=== PATIENT | female | born 2000 | race African-American/Black ===

== ENCOUNTER 2021-06-12 08:51 | Emergency (ER) | payer SELFPAY ==
[~2021-06-12] VITALS: Ht 170.2 cm; Wt 85.0 kg
[2021-06-12 10:30] LABS: *AMPHETAMINES SCREEN URINE NEGATIVE (NEGATIVE); *BARBITURATES SCREEN URINE NEGATIVE (NEGATIVE); *BENZODIAZEPINES SCREEN URINE NEGATIVE (NEGATIVE)
[2021-06-12 10:31] LABS: *COCAINE SCREEN URINE NEGATIVE (NEGATIVE); CANNABINOID URINE SCREEN NEGATIVE (NEGATIVE); METHADONE URINE SCREEN NEGATIVE (NEGATIVE); OPIATES URINE SCREEN NEGATIVE (NEGATIVE); PHENCYCLIDINE URINE SCREEN NEGATIVE (NEGATIVE)
[2021-06-12] MEDS ORDERED: LIDOCAINE HCL 1% 20ML VIAL (Pyxis) INJ INFIL ONE (11:00)
[2021-06-12] MEDS ORDERED: CEFTRIAXONE SODIUM 1 G/VIAL IM ONE (11:00)
[2021-06-12] MEDS ORDERED: DOXY100C2 MT (11:34)
[2021-06-12 12:06] VITALS: BP 128/70
== END 2021-06-12 12:06 | disposition home or self-care (01) ==
LOC: ER 08:51
DX: J18.9 Pneumonia, unspecified organism (principal); Z20.822 Contact with and (suspected) exposure to COVID-19
CPT/HCPCS: 71045; 80305; 81025; 96372; 99285; C9803; J0696; J3490; U0003; U0005; 99284